=== PATIENT | male | born 1955 | race Caucasian/White ===

== ENCOUNTER 2024-01-18 13:53 | Inpatient (IN) | payer OTHER ==
[~2024-01-18] VITALS: Ht 167.6 cm; Wt 70.3 kg
[2024-01-18 14:16] VITALS: BP 116/63; PULSE 110; RESP 18; TEMP 100.8; O2SAT 98
[2024-01-18] MEDS: NACL 0.9% 1,000 ML IV ONE (14:56)
[2024-01-18] MEDS: NACL 0.9% 1,000 ML IV SCH ×2 (15:03→18:54)
[2024-01-18] MEDS: ACETAMINOPHEN 325 MG TAB PO ONE (15:04)
[2024-01-18 15:09] LABS: HEMATOCRIT 33.3 % (36-52); HEMOGLOBIN 11.4 g/dL (12.0-18.0); MEAN CORPUSCULAR HEMOGLOBIN 30 pg (27-31); MEAN CORPUSCULAR HGB CONC 34 g/dL (33-37); MEAN CORPUSCULAR VOLUME 87.3 fL (80-94); PLATELET COUNT (AUTO) 244 K/uL (140-450); RED BLOOD CELL COUNT(AUTO) 3.81 MIL/uL (4.20-6.10); RED CELL DISTRIBUTION WIDTH 13.7 % (11.6-13.7)
[2024-01-18 15:43] LABS: ANION GAP 14.7 (8-16); CALCIUM 8.8 mg/dL (8.5-10.1); CARBON DIOXIDE 25.7 mmol/L (21-32); CREATININE 2.1 mg/dL (0.6-1.3); INR 0.98 (0.8-1.2); PARTIAL THROMBOPLASTIN TIME 29.4 secs (22-35.6); POTASSIUM 4.4 mmol/L (3.5-5.1); PROTHROMBIN TIME 10.3 secs (10.8-13.4)
[2024-01-18 15:47] LABS: ALANINE AMINOTRANSFERASE 50 U/L (12-78); ALBUMIN 3.5 g/dL (3.4-5.0); ALKALINE PHOSPHATASE 73 U/L (50-136); ASPARTATE AMINOTRANSFERASE 43 U/L (15-37); BILIRUBIN,DIRECT 0.2 mg/dL (0.0-0.3); CREATINE KINASE, TOTAL 183 U/L (39-308); LIPASE 22 U/L (16-77); TOTAL BILIRUBIN 0.8 mg/dL (0.0-1.0); TOTAL PROTEIN, SERUM 7.8 g/dL (6.4-8.2)
[2024-01-18 16:02] LABS: LYMPHOCYTES % (MANUAL) 1 % (20-46); PLATELET ESTIMATE ADEQUATE
[2024-01-18 16:05] LABS: FLU A ANTIGEN negative (NEGATIVE); FLU B ANTIGEN NEGATIVE (NEGATIVE)
[2024-01-18 17:16] LABS: APPEARANCE,URINE CLEAR (CLEAR); BILIRUBIN,URINE NEGATIVE (NEGATIVE); BLOOD, URINE 1+ (NEGATIVE); COLOR,URINE YELLOW (YELLOW); LEUKOCYTE ESTERASE ,URINE NEGATIVE (NEGATIVE); NITRITE, URINE NEGATIVE (NEGATIVE); PROTEIN,URINE 1+ (NEGATIVE); UGLUCOSE 1+ (NEGATIVE)
[2024-01-18] MEDS ORDERED: ZOLPIDEM 5 MG TAB PO PRN (18:05)
[2024-01-18] MEDS ORDERED: DEXTROSE 50% 50 ML SYR IVP PRN (18:05)
[2024-01-18] MEDS ORDERED: ONDANSETRON 4 MG/2 ML VIAL IVP PRN (18:05)
[2024-01-18] MEDS ORDERED: INSULIN LISPRO SLIDING SCALE 100 UNITS/ML VIAL SUBQ PRN (18:05)
[2024-01-18] MEDS ORDERED: ACETAMINOPHEN 325 MG TAB PO PRN (18:05)
[2024-01-18] MEDS ORDERED: cefTRIAXone 1,000 MG VIAL ONE (18:52)
[2024-01-18] MEDS ORDERED: INSU100I56 SQ (20:38)
[2024-01-18] MEDS ORDERED: AMLO-311 PO (20:38)
[2024-01-18] MEDS ORDERED: BLOOD GLUCOSE MONITORING 1 DEV DEV FS SCH (21:00)
[2024-01-18 21:15] VITALS: BP 107/55; PULSE 90; RESP 14; TEMP 98.2; O2SAT 98
[2024-01-19] MEDS ORDERED: DOCUSATE SODIUM 100 MG GELCAP PO SCH (09:00)
[2024-01-22] MEDS ORDERED: CIPR500T4 PO (10:58)
== END 2024-01-18 21:06 | disposition left against medical advice (07) | DRG 872 ==
LOC: MED 13:53 → MTU 18:09
PROVIDERS: ADMIT Student in an Organized Health Care Education/Training Program; ATTEND Student in an Organized Health Care Education/Training Program
DX: A41.9 Sepsis, unspecified organism (principal); I10 Essential (primary) hypertension; E11.9 Type 2 diabetes mellitus without complications; Z53.29 Procedure and treatment not carried out because of patient's decision for other reasons; Z20.822 Contact with and (suspected) exposure to COVID-19; E78.5 Hyperlipidemia, unspecified; Z89.511 Acquired absence of right leg below knee
CPT/HCPCS: 36415; 71045; 80048; 80076; 82550; 83605; 83690; 83880; 84484; 85025; 85610; 85730; 87040; 87086; 87186; 93005; 96365; 99285; J0696; J1815